=== PATIENT | female | born 1950 | race Asian ===

== ENCOUNTER 2017-08-23 13:33 | Outpatient (CLI) | payer OTHER | END 2017-08-23 18:21 | disposition home or self-care (01) | LOC: MAMMO 13:33 | DX: Z12.31 Encounter for screening mammogram for malignant neoplasm of breast (principal); K59.1 Functional diarrhea | CPT/HCPCS: 82272; 82705; 87015; 87045; 87205; 87324; 87328; 87329; 87449; 87899 ==

== ENCOUNTER 2018-04-18 08:13 | Outpatient (CLI) | payer OTHER | END 2018-04-18 23:38 | disposition home or self-care (01) | LOC: RESP 08:13 | DX: R06.02 Shortness of breath (principal) | CPT/HCPCS: 94664 ==

== ENCOUNTER 2018-06-07 11:49 | Day surgery (SDC) | payer OTHER ==
[2018-06-07 12:36] LABS: PLATELET COUNT 397 K/uL (152-353)
[2018-06-07 12:45] LABS: POTASSIUM 3.6 mmol/L (3.6-5.2)
== END 2018-06-07 15:05 | disposition home or self-care (01) ==
LOC: OR 11:49
PROVIDERS: Internal Medicine Gastroenterology
PROC: 0DBP8ZZ Excision of Rectum, Via Natural or Artificial Opening Endoscopic (ICD-10-PCS; principal; 2018-06-07)
DX: K62.1 Rectal polyp (principal); K57.30 Diverticulosis of large intestine without perforation or abscess without bleeding; K64.8 Other hemorrhoids; Z86.010 Personal history of colon polyps; R10.30 Lower abdominal pain, unspecified; Z12.11 Encounter for screening for malignant neoplasm of colon
CPT/HCPCS: 36415; 80053; 85027; J2001; J2250; J2704

== ENCOUNTER 2019-06-04 10:21 | Outpatient (CLI) | payer OTHER | END 2019-06-04 19:13 | disposition home or self-care (01) | LOC: MAMMO 10:21 | DX: N64.59 Other signs and symptoms in breast (principal) ==

== ENCOUNTER 2019-11-12 16:14 | Outpatient (CLI) | payer OTHER | END 2019-11-12 19:26 | disposition home or self-care (01) | LOC: RESP 16:14 | DX: Z01.818 Encounter for other preprocedural examination (principal); D05.11 Intraductal carcinoma in situ of right breast | CPT/HCPCS: 93005 ==

== ENCOUNTER 2022-09-03 16:33 | Outpatient (CLI) | payer OTHER | END 2022-09-03 19:03 | disposition home or self-care (01) | LOC: LAB 16:33 | PROVIDERS: ATTEND Nurse Practitioner Family | DX: R19.7 Diarrhea, unspecified (principal) | CPT/HCPCS: 82272; 83630; 87015; 87045; 87324; 87328; 87329; 87449; 87899 ==